=== PATIENT | male | born 1970 | race Caucasian/White ===

== ENCOUNTER 2025-03-17 13:22 | Emergency (ER) | payer OTHER, SELFPAY ==
[2025-03-17 13:40] VITALS: BMI 27.5
[2025-03-17 13:41] VITALS: BP 144/87
--- NOTE | 2025-03-17 13:53 | ED.GENMED ---
History of Present Illness
General
Chief Complaint: Rabies
Source: patient
Exam Limitations: none
Time Seen by Provider: 03/17/25 13:40
Nursing documentation reviewed up to this point in time: agreed with
History of Present Illness
History of Present Illness:
54-year-old male with no significant past medical history presents for being exposed to a bat. He states at 4 AM today, a bat flew over his face, he caught in the net and released it. He is here for rabies immunization.
Past History
Past History
ED Past Medical History: None
ED Past Surgical History: None
Social History
Tobacco: Smoker
Alcohol: Occasional
Personal:
Living: with family
Employment: Employed
Review of Systems
Review of Systems
Allergies reviewed?: Yes
All Other Systems: ROS reviewed and negative except as documented in HPI and ROS
Phy Exam
Physical Exam
Physical Exam:
GENERAL: No acute distress. A&Ox3.
CONSTITUTIONAL: Afebrile.
EYES: clear, conjunctivae normal
ENMT: moist mucus membranes
RESPIRATORY: Regular respirations, nonlabored, lungs clear.
CARDIOVASCULAR: Regular rate and rhythm, no murmurs, no rubs.
MUSCULOSKELETAL: Moves with ease. Well perfused.
SKIN: Warm, dry, pink
PSYCH: Normal mood and affect. Well kept, interactive and appropriate
NEUROLOGIC: Awake, alert and oriented. No focal neurological deficits
Course
Orders/Labs/Results
Orders:
Orders
03/17/25 13:52
Rabies Immune Globulin/Pf [HyperRAB] 1,940 unit IM NOW STA
Rabies Vaccine (Pcec)/Pf [Rabavert Rabies Vacc W-Diluent] 2.5 unit IM .ONCE ONE
Vital Signs
Initial and Last Documented VS:
Initial Vital Signs
Temp Pulse Resp BP Pulse Ox
98.4 F 72 16 144/87 96
06/06/25 13:41 03/17/25 13:41 03/17/25 13:41 03/17/25 13:41 03/17/25 13:41
Last Documented Vital Signs
Temp Pulse Resp BP Pulse Ox
98.4 F 72 16 144/87 96
03/17/25 13:41 03/17/25 13:41 03/17/25 13:41 03/17/25 13:41 03/17/25 13:41
MDM/Problems Addressed
MDM/Problems Addressed:
54-year-old male with no significant past medical history presents for being exposed to a bat. He states at 4 AM today, a bat flew over his face, he caught in the net and released it. He is here for rabies immunization.
ED Attending Note
-
Portions of this chart may have been created with voice recognition software.� Occasional wrong word or��sound alike� substitutions may have occurred due to the inherent limitations of voice recognition software.
Discharge Plan
Departure
Condition: Good
Discharge Problem:
Need for immunization against rabies
Instructions: Rabies Immune Globulin (Human) child, Rabies Vaccine
Prescriptions:
No Action
cephalexin 500 MG capsule
500 mg PO QID Qty: 28 0RF
Stand Alone Forms: Rabies Vaccine Post Exp Dosing
Activity Restrictions/Additional Instructions:
As we discussed, call the out patient [facility] today and make appointments for your follow up Vaccines
Discharge Date and Time
Print Language: BENGALI
[2025-03-17] MEDS: HyperRAB 1940 UNIT IM (14:25)
[2025-03-17] MEDS: RABAVERT RABIES VACC W-DILUENT 2.5 UNIT IM (14:26)
== END 2025-03-17 15:02 | disposition home or self-care (01) ==
LOC: EMR 13:22
PROVIDERS: EMERGENCY PHYSICIAN Emergency Medicine
DX: Z20.3 Contact with and (suspected) exposure to rabies (principal); Z23 Encounter for immunization; F17.200 Nicotine dependence, unspecified, uncomplicated
CPT/HCPCS: 99284; 90471; 96372; 90375; 90675

== ENCOUNTER 2025-03-31 08:38 | Outpatient (RCR) | payer OTHER, SELFPAY ==
[2025-03-20 11:46] VITALS: BP 145/90
[2025-03-20] MEDS: RABAVERT RABIES VACC W-DILUENT 2.5 UNIT IM (11:53)
[2025-03-24 08:05] VITALS: BP 117/89
[2025-03-24] MEDS: RABAVERT RABIES VACC W-DILUENT 2.5 UNIT IM (08:13)
[2025-03-31 08:50] VITALS: BP 159/86
[2025-03-31] MEDS: RABAVERT RABIES VACC W-DILUENT 2.5 UNIT IM (08:56)
== END 2025-04-03 10:16 | disposition home or self-care (01) ==
LOC: OID 08:38
PROVIDERS: ATTENDING PHYSICIAN Emergency Medicine
DX: Z20.3 Contact with and (suspected) exposure to rabies (principal); Z23 Encounter for immunization
CPT/HCPCS: 90471; 90675